=== PATIENT | male | born 1965 | race Caucasian/White ===

== ENCOUNTER 2023-12-28 07:32 | Emergency (ER) | payer OTHER, SELFPAY ==
[2023-12-28 07:34] VITALS: BP 142/82
[2023-12-28 07:55] VITALS: BP 151/81
--- NOTE | 2023-12-28 07:57 | ED.GENMED ---
History of Present Illness
General
Chief Complaint: Abdominal Pain
Time Seen by Provider: 12/28/23 07:47
History of Present Illness
History of Present Illness:
58-year-old male with history of coronary disease presents to the emergency department for evaluation of vague left-sided upper and lower abdominal pain for the past 1 week. Pain is waxing and waning, seemed better yesterday before worsening today.
Also reports waxing waning diarrhea and constipation over the course the week. No history of intra-abdominal surgeries. Denies any recent suspicious food intake. No associated fever, chills, sweats, nausea, vomiting, or lower urinary tract
voiding symptoms
Past History
Past History
ED Past Medical History: CAD, HTN and Hypercholesterolemia
Social History
Tobacco: Non-smoker
Alcohol: None
Living: with family
Employment: Employed
Family History
Family History: CAD
Review of Systems
Review of Systems
Allergies reviewed?: Yes
All Other Systems: ROS reviewed and negative except as documented in HPI and ROS
Phy Exam
Physical Exam
Physical Exam:
GEN: Well appearing, NAD, WDWN
Eyes: PERRLA, EOMs intact, no scleral icterus
HENT: NCAT, oral mucosa moist
Lungs: CTAB
Cardiac: RRR
Abdomen: Soft, mild tenderness to the left upper quadrant, no rigidity or peritoneal signs
Neuro: AO x 3
MSK: No gross deformity or ecchymosis.
Skin: No rashes, petechiae. Normal color, no pallor or jaundice.
Psych: Calm, cooperative, proper hygiene
Course
Orders/Labs/Results
Orders:
Orders
12/28/23 07:49
Electrocardiogram (*1) Urgent
Reason for Study: Abdominal Pain
EKG- Treatment ONCE
12/28/23 07:56
CT Abd/Pel (IV only)-DH only Urgent
Comment:
Reason For Exam: LUQ/LLQ pain
12/28/23 08:06
Complete Blood Count/With Diff Urgent
Comprehensive Metabolic Panel Urgent
Lipase Urgent
Abnormal Lab Results
12/28/23
08:06
RBC 4.21 L 10^6/uL
(4.70-6.10)
Hgb 12.4 L g/dL
(13.0-18.0)
Hct 36.1 L %
(39.0-52.0)
Monocytes % 10.0 H %
(1.7-9.3)
BUN 31 H mg/dl
(9-20)
Creatinine 1.4 H mg/dL
(0.7-1.3)
Glucose 118 H mg/dl
(70-99)
12/28/23 08:06
12/28/23 08:06
Vital Signs
Initial and Last Documented VS:
Initial Vital Signs
Temp Pulse Resp BP Pulse Ox
98.1 F 78 18 142/82 100
12/28/23 07:34 12/28/23 07:34 12/28/23 07:34 12/28/23 07:34 12/28/23 07:34
Last Documented Vital Signs
Temp Pulse Resp BP Pulse Ox
98.1 F 66 18 123/65 98
12/28/23 07:34 12/28/23 09:30 12/28/23 09:30 12/28/23 09:00 12/28/23 09:30
MDM/Problems Addressed
MDM/Problems Addressed:
Labs and imaging unremarkable. Unclear etiology to patient's symptoms. Recommend outpatient GI follow-up if symptoms do not self resolve
*Critical Care Note
Total Time (30-74mins, 75-104mins- exclusive of procedures): Not Applicable
ED Attending Note
-
Portions of this chart may have been created with voice recognition software.� Occasional wrong word or��sound alike� substitutions may have occurred due to the inherent limitations of voice recognition software.
Discharge Plan
Departure
Patient Disposition: Home (Routine Discharge)
Date of Disposition: 12/28/23
Time of Disposition: 09:39
Patient with high blood pressure during this ER visit?: No
Discharge Problem:
Left sided abdominal pain
Instructions: Abdominal Pain
Referrals:
Kush Love DO [Family Provider] -
Radha De MD [Active] -
Activity Restrictions/Additional Instructions:
Your labs and CT scan showed no clear abnormalities
If pain continues, follow up with GI
Interventions
Interventions:
*Risk Screen - Suicide Last Done: 12/28/23 07:53
*Neglect/Abuse Screening Last Done: 12/28/23 07:53
ED- Fall Risk Assessment Last Done: 12/28/23 07:56
*ED COVID-19 Vaccine History Last Done: 12/28/23 07:34
*Nursing Disposition Last Done: 12/28/23 09:51
GD-Strzzi-Zwaoxpgydy Assessment Last Done: 12/28/23 07:53
Discharge Date and Time
Discharge Date/Time: 12/28/23 09:54
Print Language: ARMENIAN
[2023-12-28 08:00] VITALS: BP 126/76
[2023-12-28 08:18] LABS: % Eosinophils 3.3 % (0-6); % Immature Granulocytes 0.4 % (0-0.5); % Neutrophils 60.3 % (42.2-75.2); Absolute Basophils 0.1 10^3/uL (0-0.2); Absolute Eosinophils 0.2 10^3/uL (0-0.7); Absolute Lymphocytes 1.3 10^3/uL (1.2-3.4); Absolute Monocytes 0.5 10^3/uL (0.1-0.6); Absolute Neutrophils 3.1 10^3/uL (1.4-6.5); Hematocrit 36.1 % (39.0-52.0); Hemoglobin 12.4 g/dL (13.0-18.0); Mean Corp Hgb Conc. 34.3 g/dL (33.0-37.0); Mean Corpuscular Hgb 29.5 pg (27.0-31.0); Mean Corpuscular Volume 85.7 fL (80.0-94.0); Mean Platelet Volume 9.2 fL (7.4-10.4); Nucleated Red Blood Cells % 0 % (-); Platelet Count 308 10^3/uL (130-400); Red Blood Cell Count 4.21 10^6/uL (4.70-6.10); Red Cell Dist. Width 12.8 % (11.5-14.5); White Blood Cell Count 5.1 10^3/uL (4.8-10.8)
[2023-12-28 08:37] LABS: ALT (SGPT) 32 U/L (0-50); AST (SGOT) 32 U/L (17-59); Albumin 4.7 g/dl (3.5-5.0); Alkaline Phosphatase 64 U/L (38-126); Blood Urea Nitrogen 31 mg/dl (9-20); Calcium 9.8 mg/dl (8.4-10.2); Carbon Dioxide 25 mmol/L (22-30); Chloride 102 mmol/L (98-107); Glucose 118 mg/dl (70-99); Lipase 101 U/L (23-300); Potassium 4.1 mmol/L (3.5-5.1); Sodium 140 mmol/L (135-145); Total Bilirubin 0.6 mg/dl (0.2-1.3); Total Protein 8.2 g/dl (6.3-8.2)
[2023-12-28 09:00] VITALS: BP 123/65
== END 2023-12-28 09:54 | disposition home or self-care (01) ==
LOC: EMR 07:32
PROVIDERS: Physician Assistant; EMERGENCY PHYSICIAN Emergency Medicine; FAMILY PHYSICIAN Family Medicine
DX: R10.9 Unspecified abdominal pain (principal)
CPT/HCPCS: 99285; 74177; 80053; 83690; 85025; 93005; Q9967